=== PATIENT | female | born 1975 | race Caucasian/White ===

== ENCOUNTER 2017-07-24 11:11 | Observation (INO) | payer OTHER ==
[~2017-07-24] VITALS: Ht 170.2 cm; Wt 72.6 kg
[2017-07-24 11:47] LABS: ABSOLUTE BASOPHIL COUNT 0 /CUMM (0.0-0.2); ABSOLUTE EOSINOPHIL COUNT 0.1 /CUMM (0.0-0.7); ABSOLUTE GRANULOCYTE CT 1.6 /CUMM (1.4-6.5); ABSOLUTE LYMPH COUNT 1.7 /CUMM (1.2-3.4); ABSOLUTE MONOCYTE COUNT 0.5 /CUMM (0.10-0.60); BASOPHIL % 0.8 % (0.0-2.0); EOSINOPHIL % 3.6 % (0-5); GRANULOCYTE % 41.2 % (42.2-75.2); HEMATOCRIT 37.7 % (37-47); MEAN CORPUSCULAR HGB 33.9 PG (27.0-31.0); MEAN CORPUSCULAR HGB CONC 34.4 G/DL (33.0-37.0); MEAN CORPUSCULAR VOLUME 98.6 FL (81.0-99.0); MEAN PLATELET VOLUME 7.4 FL (7.4-10.4); PLATELET COUNT 197 /CUMM (130-400); RBC DISTRIBUTION WIDTH 14.4 % (11.5-14.5); RED BLOOD CELL CT 3.82 /CUMM (4.20-5.40)
--- NOTE | 2017-07-24 12:01 | ED GENERAL ADULT ---
History of Present Illness General Chief Complaint: ETOH/Drug Related Complaint Stated Complaint: DETOX Source: patient Exam Limitations: no limitations Vital Signs & Intake/Output Vital Signs & Intake/Output Vital Signs Date Time Temp Pulse Resp B/P B/P Pulse O2 O2 Flow FiO2 Mean Ox Delivery Rate 07/25 0608 97.6 81 18 117/78 02 0607 97.6 81 18 117/78 95 Room Air 07/25 0330 98.0 87 18 144/82 02 0237 98.0 87 18 144/82 95 Room Air 07/25 0144 98.7 81 16 137/84 02/ 2339 98.7 81 18 137/84 96 Room Air 07/24 2108 98.0 94 17 134/84 96 Room Air 07/24 2017 98.2 103 20 143/86 96 Room Air 07/24 1937 103 130/90 07/24 1930 98.1 103 20 130/90 97 Room Air 07/24 1544 98.5 96 17 114/75 97 Room Air 07/24 1315 98.5 94 15 123/63 95 Room Air 07/24 1125 98.2 116 15 134/91 98 Room Air Room Air ED Intake and Output 07/25 0000 07/24 1200 Intake Total Output Total Balance Patient 160 lb Weight Weight Reported by Patient Measurement Method Allergies Coded Allergies: amoxicillin (Intermediate, HIVES 07/24/17) Triage Note: PT TO ED FOR C/C OF ETOH DETOX. PT HAS DETOXED IN THE PAST, LAST TIME 2 YEARS AGO, DENIES SEIZURE. REPORTS SOME COCAINE USE LAST TIME 3 DAYS AGO. DENIES SI/HI. PT REPORTS SHE IS SUPPOSED TO GO TO [facility] BUT HAD TO BE SEEN HERE FIRST. 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 USUALLY DRINKS VODKA 2 PINTS A DAY. Triage Nurses Notes Reviewed? yes : No Patient currently breastfeeds: No HPI: Patient presents requesting evaluation for detox. Patient states that she is drinking up to 2 pints per day. Patient is post to go to sober house was told that she needed evaluation first. Patient denies any history of DTs or withdrawal seizures however she is not drink this heavily and then abruptly stopped in the past. Her last drink was prior to arrival. Patient denies any coingestion. There is no suicidal or homicidal ideations. (Abhi OWENS,Corona De Leon) Reconcile Medications Aripiprazole (Abilify) 10 MG TABLET 1 TAB PO DAILY MENTAL HEALTH (Reported) Dextroamphetamine/Amphetamine (Adderall 20 MG Tablet) 20 MG TABLET 1 TAB PO BID ADD (Reported) Doxepin HCl 50 MG CAPSULE 1 CAP PO QPM MENTAL HEALTH (Reported) Escitalopram Oxalate 20 MG TABLET 1 TAB PO DAILY MENTAL HEALTH (Reported) LORazepam (Ativan) 1 MG TAB 1 TAB PO TID PRN shakes eight...[id number] (Emi OWENS,Benoit Arauz) Past History Travel History Traveled to [place] past 21 day No Medical History Any Pertinent Medical History? see below for history Neurological: NONE EENT: NONE Cardiovascular: NONE Respiratory: NONE Gastrointestinal: NONE Hepatic: NONE Renal: NONE Musculoskeletal: NONE Psychiatric: depression, ADD Endocrine: NONE Blood Disorders: NONE Cancer(s): NONE Surgical History Surgical History: non-contributory Psychosocial History What is your primary language Lao Tobacco Use: Never used ETOH Use: alcoholic Illicit Drug Use: cocaine Family History Hx Contributory? No (Abhi OWENS,Corona De Leon) Review of Systems Review of Systems Constitutional: Reports: no symptoms. EENTM: Reports: no symptoms. Respiratory: Reports: no symptoms. Cardiovascular: Reports: no symptoms. GI: Reports: no symptoms. Genitourinary: Reports: no symptoms. Musculoskeletal: Reports: no symptoms. Skin: Reports: no symptoms. Neurological/Psychological: Reports: no symptoms. Hematologic/Endocrine: Reports: no symptoms. Immunologic/Allergic: Reports: no symptoms. All Other Systems: Reviewed and Negative (Abhi OWENS,Corona De Leon) Physical Exam Physical Exam General Appearance: well developed/nourished, alert, awake, intoxicated Head: atraumatic, normal appearance Eyes: Bilateral: PERRL, EOMI, other (SLUGGISH). Ears, Nose, Throat: normal pharynx, normal ENT inspection Neck: normal inspection, supple, full range of motion Respiratory: normal breath sounds, chest non-tender, no respiratory distress, lungs clear Cardiovascular: regular rate/rhythm, normal peripheral pulses Gastrointestinal: normal bowel sounds, soft, non-tender, no organomegaly Back: normal inspection, normal range of motion Extremities: normal inspection, normal capillary refill, normal range of motion, no edema Neurologic/Psych: no motor/sensory deficits, awake, oriented x 3 Skin: intact, normal color, warm/dry Core Measures ACS in differential dx? No CVA/TIA Diagnosis: No Sepsis Present: No Sepsis Focused Exam Completed? No (Abhi OWENS,Corona De Leon) Progress Differential Diagnoses I considered the following diagnoses in my evaluation of the patient: [ALCOHOL DEPENDENCY] Plan of Care: Orders Procedure Date/time Status CASE MANAGEMENT CONSULT 07/25 0116 Active Regular Diet 07/[address] in observation 07/24 162 Active ED Holding Orders 07/24 162 Active Patient Data 07/24 1627 Active Vital Signs 07/24 162 Active Code Status 07/24 162 Active Intake & Output 07/24 1235 Active CIWA 07/24 1117 Active URINE DRUG SCREEN FOR ER ONLY 07/24 1117 Complete URINALYSIS 07/24 1117 Complete LIPASE 07/24 1117 Complete HUMAN BETA HCG SCREEN 07/24 1117 Complete ETHANOL 07/24 1117 Complete COMPREHENSIVE METABOLIC PANEL 07/24 1117 Complete CBC WITHOUT DIFFERENTIAL 07/24 1117 Complete Current Medications Sig/Richi Start time Last Medication Dose Stop Time Status Admin Aripiprazole 10 MG DAILY 07/25 1000 AC (Abilify) Escitalopram Oxalate 20 MG DAILY 07/25 1000 AC (Lexapro) Doxepin HCl 50 MG AT BEDTIME 07/24 2200 AC 07/24 ([place]) 2108 Laboratory Tests 07/24/17 1605: Urine Opiates Screen < 100.00, Methadone Screen 63, Barbiturate Screen < 60, Ur Phencyclidine Scrn < 6.00, Amphetamines Screen > 1450 H, U Benzodiazepines Scrn < 85, Urine Cocaine Screen 753 H, Urine Cannabis Screen 68.70 H, Urinalysis MOD H, Urine Color YEL, Urine Clarity HAZY H, Urine pH 7.0, Ur Specific [place] 1.025, Urine Protein 30 H, Urine Ketones TRACE H, Urine Nitrite NEG, Urine Bilirubin NEG, Urine Urobilinogen 1.0, Ur Leukocyte Esterase MOD H, Ur Microscopic SEDIMENT EXAMINED, Urine RBC FEW H, Urine WBC > 75 H, Ur Epithelial Cells FEW, Urine Bacteria MOD H, Urine Hemoglobin TRACE-INTACT, Urine Glucose NEG 07/24/17 1137: Anion Gap 18 H, Estimated GFR > 60, BUN/Creatinine Ratio 18.6, Glucose 111 H, Calcium 8.8, Total Bilirubin 0.3, AST 511 H, ALT 206 H, Alkaline Phosphatase 93, Total Protein 7.1, Albumin 4.4, Globulin 2.7, Albumin/Globulin Ratio 1.6, Lipase 343 H, Total Beta HCG NEGATIVE, CBC w Diff NO MAN DIFF REQ, RBC 3.82 L, MCV 98.6, MCH 33.9 H, MCHC 34.4, RDW 14.4, MPV 7.4, Gran % 41.2 L, Lymphocytes % 41.8, Monocytes % 12.6 H, Eosinophils % 3.6, Basophils % 0.8, Absolute Granulocytes 1.6, Absolute Lymphocytes 1.7, Absolute Monocytes 0.5, Absolute Eosinophils 0.1, Absolute Basophils 0, Serum Alcohol 426.0 Initial ED EKG: none Hand-Off Endorsed To: Benoit Middleton MD Endorsed Time: 1899 Pending: other (SOBRIETY, CIWA) (Corona Moe MD) Differential Diagnoses I considered the following diagnoses in my evaluation of the patient: (Benoit Middleton MD) Departure Departure Disposition: STILL A PATIENT Condition: Stable Clinical Impression Primary Impression: Alcohol intoxication Qualifiers: Complication of substance-induced condition: uncomplicated Qualified Code: F10.920 - Alcohol use, unspecified with intoxication, uncomplicated Secondary Impressions: Alcoholic hepatitis Referrals: Patient Has No Primary Care Dr (PCP/Family) Departure Forms: Customer Survey General Discharge Information (Corona Moe MD) Departure Prescriptions: Current Visit Scripts LORazepam (Ativan) 1 TAB PO TID PRN shakes #8 TAB eight...[id number] (Benoit Middleton MD) Critical Care Note Critical Care Note Critical Care Time: non-applicable (Corona Moe MD) ED Attending Observation Initial Observation Note: I have seen and personally examined NETTA GRANT on 07/24/17 at 1628. I agree with the current emergency department documentation. The disposition (admission or discharge) is uncertain at this time, she needs a period of observation for the following reason(s): [ALCOHOL DEPENDENCY, UNKNOWN YET IF SHE WILL NEED A MEDICAL ADMISSION OR SHE WILL BE STABLE FOR DISCHARGE TO A SOBER HOUSE.] The ED Nurse caring for this patient has been personally informed as to what the patient is being observed for. (Moe MD,Willian.) Initial Observation Note: I have seen and personally examined NETTA GRANT on 07/25/17 at 0617. I agree with the current emergency department documentation. The disposition (admission or discharge) is uncertain at this time, she needs a period of observation for the following reason(s): The ED Nurse caring for this patient has been personally informed as to what the patient is being observed for. Observation Re-Evaluation: I have reevaluated NETTA GRANT on 07/25/17 at 0616. The physical findings that support the continued need to observe this patient include .pt with ciwa scores of 4, scoring points for anxiety only. discussed at length with patient.... she merits out patient referral with outpatient ativan. rx sent to pharmacy. close follow up with outpatient facility advised. Observation Discharge: I have reevaluated NETTA GRANT on 07/25/17 at 0631. The patient is: ([x]): Stable for discharge... pt breathylized .000 (Emi OWENS,Benoit Arauz)
[2017-07-24] MEDS ORDERED: ABILIFY10 M1 PO (15:53)
[2017-07-24] MEDS ORDERED: ADDERALL 20 MG20 MG PO (15:53)
[2017-07-24] MEDS ORDERED: ESCITALOPRAM OX20 MG PO (15:53)
[2017-07-24] MEDS ORDERED: DOXEPIN HCL50 MG PO (15:53)
[2017-07-25 01:44] VITALS: BP 137/84
[2017-07-25 03:30] VITALS: BP 144/82
[2017-07-25 06:08] VITALS: BP 117/78
[2017-07-25] MEDS ORDERED: ATIVAN1 M1 PO (06:22)
== END 2017-07-25 07:01 ==
LOC: ERH 11:11 → ERHI 16:27
PROVIDERS: Physician Assistant Medical
DX: F10.920 Alcohol use, unspecified with intoxication, uncomplicated (principal); F32.9 Major depressive disorder, single episode, unspecified; F98.8 Other specified behavioral and emotional disorders with onset usually occurring in childhood and adolescence; F14.90 Cocaine use, unspecified, uncomplicated; K70.10 Alcoholic hepatitis without ascites; Z79.899 Other long term (current) drug therapy
CPT/HCPCS: 6090; 80307; 81001; G0378; G0480; J0401